=== PATIENT | male | born 1955 | race Hispanic/Latino ===

== ENCOUNTER 2019-01-21 09:48 | Day surgery (SDC) | payer BC ==
[~2019-01-21 09:48] MED LIST: ANCEF/STERILE WATER 2 GM/20 ML IV NR
[2019-01-21] MEDS ORDERED: VERSED IV ONE (11:01)
[2019-01-21] MEDS ORDERED: LACTATED RINGERS 1,000 ML IV SCH (11:02)
--- NOTE | 2019-01-21 11:06 | Anesthesia Day of Surgery ---
Anesthesia Day of Surgery - Day of Surgery Patient Examined: Yes Patient H&P Reviewed: Yes Patient is NPO: Yes
--- NOTE | 2019-01-21 11:06 | Anesthesia Consultation ---
Anesthesia Consult and Med Hx Date of service: 01/21/19 - Airway Anesthetic Teeth Evaluation: Chipped, Caps, Crowns ROM Head & Neck: Adequate Mental/Hyoid Distance: Adequate Mallampati Class: Class II Intubation Access Assessment: Probably Good - Pulmonary Exam CTA: Yes - Cardiac Exam Cardiac Exam: RRR - Pre-Operative Health Status ASA Pre-Surgery Classification: ASA1 Proposed Anesthetic Plan: General - Pulmonary Hx Smoking: No Hx Respiratory Symptoms: No Hx Sleep Apnea: No (LAILA PRE SCREEN HIGH RISK) - Cardiovascular System Hx Hypertension: No Hx Heart Attack/AMI: No Hx Percutaneous Transluminal Coronary Angioplasty (PTCA): No - Central Nervous System CVA: No - Gastrointestinal Hx Gastroesophageal Reflux Disease: No - Endocrine Hx Renal Disease: No Hx Liver Disease: No Hx Insulin Dependent Diabetes: No Hx Non-Insulin Dependent Diabetes: No Hx Thyroid Disease: No - Other Systems Hx Cancer: Yes (SKIN CA ON NECK- REMOVED 1987) Hx Obesity: No - Additional Comments Anesthesia Medical History Comments: No hx anesthetic complications.
[2019-01-21] MEDS ORDERED: SUBLIMAZE IV PRN (11:07)
[2019-01-21] MEDS ORDERED: DIPRIVAN 10 MG/ML IV ONE (12:05)
[2019-01-21] MEDS ORDERED: SUBLIMAZE ONE (12:05)
[2019-01-21] MEDS ORDERED: VERSED ONE (12:22)
[2019-01-21] MEDS ORDERED: OMNIPAQUE 300 MG/50 ML (CATH LAB) IV ONE ×2 (12:25)
[2019-01-21] MEDS ORDERED: WATER FOR IRRIG STERILE IR ONE (12:43)
[2019-01-21] MEDS ORDERED: NACL 0.9% IR ONE (12:43)
--- NOTE | 2019-01-21 13:16 | Short Stay Summary ---
Short Stay Documentation Date of service: 01/21/19 - Allergies and Medications Current Medications: Allergies Sulfa (Sulfonamide Antibiotics) Allergy (Verified 01/19/19 16:25) Hives Home Medications Medication Instructions Recorded Confirmed Last Taken Type Ciprofloxacin HCl [Cipro] 500 mg PO BID 01/19/19 01/19/19 01/20/19 History Gemfibrozil [Lopid] 600 mg PO BID 01/19/19 01/19/19 01/20/19 History Tamsulosin HCl [Flomax] 0.4 mg PO DAILY 01/19/19 01/19/19 01/20/19 History Active Medications Cefazolin Sodium (Ancef/Sterile Water 2 Gm/20 Ml) 2 gm IV PREOP NR Stop: 01/21/19 23:59 Fentanyl (Sublimaze) 50 mcg IV Q5MIN PRN PRN Reason: Pain , Severe (7-10) Stop: 01/21/19 16:00 Lactated Ringer's (Lactated Ringers) 1,000 mls @ 100 mls/hr IV DIRECT CARLOS Last Admin: 01/21/19 11:10 Dose: 100 mls/hr Documented by: - Brief post op/procedure progress note Date of procedure: 01/21/19 Pre-op diagnosis: left Post-op diagnosis: same Procedure: cysto, rpg, left ureteroscopy, basket stone stent - string (ok to pull string tomorrow) Anesthesia: JUNIORA Surgeon: LISBET MOROCHO Estimated blood loss: none Pathology: none Condition: stable - Hospital course Hospital course: string (ok to pull string tomorrow flomax(pt has), cipro, ultran, percocet,zofran on chart - Disposition Condition at discharge: Stable Disposition: DC-01 TO HOME OR SELFCARE Short Stay Discharge Plan Follow up with: JENNIFER MATTHEWS MD [Primary Care Provider] - 7 Days
--- NOTE | 2019-01-21 14:53 | Fluoroscopy Report ---
FLUOROSCOPY RETROGRADE UROGRAPHY: HISTORY: Left ureteral stone. FINDINGS: Fluoroscopy was provided by radiology during retrograde urography by the urologist. 9 fluoroscopic images were captured. The right retrograde pyelogram was normal. A filling defect consistent with a stone is identified in the distal left ureter. Left ureteroscopy was performed. The stone was extracted with use of a laser. Left ureteral stent was placed with good drainage of the left collecting system on the final image. IMPRESSION: Left ureteral stone removal. Left ureteral stent placement.
--- NOTE | 2019-01-21 17:45 | Operative Report ---
PREOPERATIVE DIAGNOSIS: Left ureteral stone. POSTOPERATIVE DIAGNOSIS: Left ureteral stone. PROCEDURE: Cystoscopy, bilateral retrograde pyelograms, left ureteroscopy, holmium laser lithotripsy, basket stone extraction, double-J stent (6-Niuean 24 cm) with an external string. SURGEON: Kenny Srivastava MD ANESTHESIA: General. ESTIMATED BLOOD LOSS: Minimal. FLUIDS: Crystalloid. COMPLICATIONS: No complications. INDICATIONS: This patient is a 63-year-old gentleman presented to the [facility] office with left flank pain. He had a CT of abdomen and pelvis done at the [facility] and was found to have an 8 mm what he described renal stone. Initially the CT report was not available. The patient did not have a disc. He felt comfortable; however, he was planning a trip to [place] shortly, so we wanted to act quickly on resolving his stone issue. He had pain medicine; however, not any pain at this time. Once we got the final report of the CT scan, it was a distal 8 mm stone and I was concerned that this may cause a problem while he traveled. KUB suggested stone on the right side. After a long discussion with the patient and his , they agreed to proceed with endoscopic evaluation. Risks, benefits, and complications were explained. DESCRIPTION OF PROCEDURE: The patient was taken to the operative suite, placed in a supine position. After adequate general anesthesia, placed in a dorsal lithotomy position, prepped and draped in a sterile fashion. Pancystourethroscopy was performed with 22-Niuean Storz cystoscope, no urethral abnormalities. His prostate did display some mild trilobar obstruction. Bladder, no tumors or stones were noted. Bilateral retrograde pyelograms were obtained with an 8-Niuean [place] catheter and 8 mL of contrast. No filling defects or obstruction on the right. The left side had obvious distal filling defect. 0.035 Glidewire x 2 was placed up the left ureter under fluoroscopic guidance. Rigid ureteroscopy was performed. A yellow stone could be appreciated in the distal ureter. Using a holmium 200 micron fiber lithotripsy at 4 liang and then up to 8 liang were able to fragment the stone fragments were extracted with 3-Niuean [place] basket. Ureteroscopy up to the renal pelvis. No other stones or fragments could be appreciated. A 6-Niuean 24 cm double-J stent with an external string was left indwelling. Rectal exam was benign. He was extubated and taken to recovery room in stable condition. We will give him one of the fragments. I will send the other for stone analysis. The patient is on Flomax for BPH. He was also given Percocet, Ultram, Zofran and Cipro. He should be able to travel in the next 3 days or so. He can pull the stent. He was instructed on pulling. He and his were instructed on being able to pull the stent if needed. JOB# [id number] [facility]
[2019-01-21 21:22] VITALS: BP 142/82
== END 2019-01-21 09:49 | disposition home or self-care (01) ==
LOC: OR 09:48
PROVIDERS: ATTEND Urology
DX: N20.1 Calculus of ureter (principal); N40.0 Benign prostatic hyperplasia without lower urinary tract symptoms; E78.00 Pure hypercholesterolemia, unspecified; Z85.828 Personal history of other malignant neoplasm of skin; Z98.890 Other specified postprocedural states; Z79.899 Other long term (current) drug therapy; Z88.2 Allergy status to sulfonamides
CPT/HCPCS: 52356; 74420; A4217; C1758; C1769; C2617; J0690; J2250; J2704; J3010; J7120; Q9967